=== PATIENT | female | born 1955 | race Caucasian/White ===

== ENCOUNTER 2017-01-04 10:49 | Observation (INO) | payer BC, OTHER ==
--- NOTE | 2017-01-04 11:13 | PDHPUP ---
History & Physical Update H&P update statement: This history and physical update is based on an assessment of the patient which was completed after admission or registration (within 24 hours), but prior to the surgery/procedure. H&P update: H&P reviewed & patient examined, no change in patient's condition since H&P completed
[2017-01-04] MEDS ORDERED: ceFAZolin 2 GM/DEXTROSE 100 ML IV ONE (12:30)
[2017-01-04] MEDS ORDERED: LR 1,000 ML IV ONE (12:38)
[2017-01-04] MEDS ORDERED: MIDAZOLAM 2 MG/2 ML VIAL IVP ONE (12:58)
[2017-01-04] MEDS ORDERED: LIDOCAINE 1% 2 ML INJ ONE (13:00)
--- NOTE | 2017-01-04 13:23 | PDANEPAE ---
ANE History of Present Illness thyroid toxicosis, currently euthyroid ANE Past Medical History - Cardiovascular History Hx Hypertension: No Hx Arrhythmias: No Hx Chest Pain: No Hx Coronary Artery / Peripheral Vascular Disease: No Hx CHF / Valvular Disease: No Hx Palpitations: No - Pulmonary History Hx COPD: No Hx Asthma/Reactive Airway Disease: No Hx Recent Upper Respiratory Infection: No Hx Oxygen in Use at Home: No - Neurologic History Hx Cerebrovascular Accident: No Hx Seizures: No Hx Dementia: No - Endocrine History Hx Diabetes: No Hypothyroid: Yes Hyperthyroid: Yes - Renal History Hx Renal Disorders: No - Liver History Hx Hepatic Disorders: No - Neurological & Psychiatric Hx Hx Neurological and Psychiatric Disorders: No - Cancer History Hx Cancer: No - Congenital Disorder History Hx Congenital Disorders: No - GI History Hx Gastrointestinal Disorders: Yes - Chronic Pain History Chronic Pain: No ANE Review of Systems - Exercise capacity Exercise capacity: >=4 METS METS (RN): 4 METS - Systems Constitutional: Reports: diaphoresis EENMT: Reports: no symptoms Cardiac: Reports: no symptoms Respiratory: Reports: no symptoms Gastrointestinal: Reports: no symptoms Neurological: Reports: no symptoms ANE Patient History - Allergies Allergies/Adverse Reactions: codeine Allergy (Verified 12/23/16 11:42) Swelling/neck,face,throat - Home Medications Home Medications: Methimazole [Tapazole 5MG (*)] 2.5 mg PO DAILY@12 12/23/16 [Last Taken 01/03/17] Methimazole [Tapazole 5MG (*)] 5 mg PO BID 12/23/16 [Last Taken 01/04/17 05:30] - NPO status NPO Since - Liquids (Date): 01/04/17 NPO Since - Liquids (Time): 08:00 NPO Since - Solids (Date): 01/03/17 NPO Since - Solids (Time): 19:00 - Smoking Hx Smoking Status: Never smoked - Alcohol Use Alcohol Use: Rarely - Family Anes Hx Family Anes Hx: none Family Hx Anesthesia Complications: NEG ANE Labs/Vital Signs - Vital Signs Blood Pressure: 117/57 Heart Rate: 55 Respiratory Rate: 16 O2 Sat (%): 94 Height: 160.02 cm Weight: 65.771 kg ANE Physical Exam - Airway Neck exam: FROM Mallampati Score: Class 2 Mouth exam: normal dental/mouth exam - Pulmonary Pulmonary: no respiratory distress - Cardiovascular Cardiovascular: regular rate and rhythym - ASA Status ASA Status: II ANE Anesthesia Plan Anesthesia Plan: general endotracheal anesthesia
[2017-01-04] MEDS ORDERED: ROCURONIUM 100 MG/10 ML VIAL ONE (13:43)
[2017-01-04] MEDS ORDERED: PROPOFOL 200 MG/20 ML VIAL ONE (13:43)
[2017-01-04] MEDS ORDERED: fentaNYL 100 MCG/2 ML INJ ONE ×2 (13:43→16:02)
[2017-01-04] MEDS ORDERED: DEXAMETHASONE 4 MG/ML VIAL ONE (13:57)
[2017-01-04] MEDS ORDERED: ONDANSETRON 4 MG/2 ML VIAL ONE (13:57)
[2017-01-04] MEDS ORDERED: REMIFENTANIL HCL 1 MG VIAL ONE (13:58)
[2017-01-04] MEDS ORDERED: BUPIVACAINE/EPI 0.5% 30 ML SDV ONE (14:02)
[2017-01-04] MEDS ORDERED: epHEDrine SULFATE 10 MG/ML SYR ONE (14:19)
[2017-01-04] MEDS ORDERED: NALOXONE HCL 0.4 MG/ML INJ IVP PRN (15:28)
[2017-01-04] MEDS ORDERED: ONDANSETRON 4 MG/2 ML VIAL IVP PRN ×2 (15:28→15:56)
[2017-01-04] MEDS ORDERED: PROMETHAZINE HCL 25 MG/ML INJ IVP PRN (15:28)
[2017-01-04] MEDS ORDERED: HYDROmorphONE/DILAUDID 1 MG/ML SYR IVP PRN (15:28)
[2017-01-04] MEDS ORDERED: OXYCODONE/APAP 5/325 TAB PO PRN ×2 (15:28→15:56)
[2017-01-04] MEDS ORDERED: HYDROCODONE/APAP 5/325 TAB PO PRN (15:28)
[2017-01-04] MEDS ORDERED: ALBUTEROL 3 ML DEYVIAL IH PRN (15:28)
--- NOTE | 2017-01-04 15:56 | POSTOPPROG ---
Post Op Note Date of Operation: 01/04/17 Surgeon: Everton Olivas Chicken Handler: Janiya Son Anesthesiologist: Song Anthony Anesthesia: GET(General Endotracheal) Pre-op Diagnosis: toxic goiter, hyperthyroid Post-op Diagnosis: same Procedure: total thyroidectomy Findings: large multinodular thyroid, parathyroids preserved, nerves identified Inf/Abcess present in the surg proc area at time of surgery?: No EBL: 200cc Complications: none Drains: [place]
[2017-01-04] MEDS ORDERED: NS W/ 20 KCl/L 1,000 ML IV SCH (16:00)
[2017-01-04] MEDS: fentaNYL 100 MCG/2 ML INJ IVP PRN ×2 (16:04→16:56)
[2017-01-04] MEDS ORDERED: DIAZEPAM 10 MG/2 ML SYR ONE (16:35)
[2017-01-04] MEDS ORDERED: DIAZEPAM 10 MG/2 ML SYR IVP ONE (16:45)
[2017-01-04] MEDS ORDERED: HYDROmorphONE/DILAUDID 1 MG/ML SYR ONE (17:00)
--- NOTE | 2017-01-04 17:39 | POSTANESTH ---
Post Anesthetic Evaluation Cardiovascular Status: Normal, Stable Respiratory Status: Normal, Stable Level of Consciousness/Mental Status: Can Participate in Eval Pain Control: Adequate, Prn Tx Ordered Nausea/Vomiting Control: Adequate, Prn Tx Ordered Complications Possibly Related to Anesthesia: None Noted
[2017-01-04] MEDS: HYDROmorphONE/DILAUDID 1 MG/ML SYR IVP PRN ×2 (18:13→19:50)
--- NOTE | 2017-01-04 19:42 | SOAPPROG ---
SOAP Progress Note Assessment/Plan: Assessment: POSTOP STATUS POST TOTAL THYROIDECTOMY/COMFORTABLE/VOICE OKAY/ CHOVSTEK'S SIGN IS NEGATIVE WOUND OKAY Plan: HOME IN THE A.M./CALCIUM CHECKED TONIGHT IN THE A.M. 01/04/17 19:40 Objective: Vital Signs Temp Pulse Resp BP Pulse Ox 36.5 C 62 16 139/74 H 99 01/04/17 19:16 01/04/17 19:16 01/04/17 19:16 01/04/17 19:16 01/04/17 19:16 01/03/17 01/04/17 01/05/17 05:59 05:59 05:59 Intake Total 1130 Output Total 0 Balance 1130 ICD10 Worksheet Patient Problems: Problems Problem Status Onset Graves' disease with exophthalmos Acute - ICD10 Problem Qualifiers (1) Graves' disease with exophthalmos
[2017-01-04] MEDS: DOCUSATE SODIUM 100 MG CAP PO SCH (23:24)
[2017-01-04] MEDS: HYDROCODONE/APAP 5/325 TAB PO PRN (23:30)
[2017-01-05 07:20] LABS: HEMATOCRIT 35.9 % (38.0-47.0); HEMOGLOBIN 11.9 g/dL (12.6-16.3)
[2017-01-05 07:33] LABS: ANION GAP 10 mEq/L (8-16); CALCIUM 7.7 mg/dL (8.5-10.4); CARBON DIOXIDE 23 mEq/l (22-31); CHLORIDE 104 mEq/L (97-110); CREATININE 0.6 mg/dL (0.6-1.0); GLOMERULAR FILTRATION RATE > 60; GLUCOSE 115 mg/dL (70-100); POTASSIUM 4.5 mEq/L (3.5-5.2); SODIUM 137 mEq/L (134-144)
[2017-01-05 08:26] VITALS: RESP 16; O2SAT 97
[2017-01-05] MEDS: DOCUSATE SODIUM 100 MG CAP PO SCH (08:34)
[2017-01-05] MEDS: HYDROCODONE/APAP 5/325 TAB PO PRN ×3 (08:35→18:07)
--- NOTE | 2017-01-05 10:24 | SOAPPROG ---
SOAP Progress Note Assessment/Plan: Assessment/Plan: 61 Y F s/p total thyroidectomy, hyperthyroid, POD#1. Hypocalcemia. Tums tid. Discussed S/S of hypocalcemia. WOund intact. Removed tayo drain. BP ok. Discussed limitations and wound care. Start armour thyroid. Pt has Rx from endocrinology. Dispo: home today. Repeat Ca++ soon. S: pain controlled. no numbness or tingling. O: alert, nad inc cdi, +ecchymosis, moderate swelling, no erythema, neg chovstek ctab rrr abd soft 01/05/17 10:21 Objective: Vital Signs Temp Pulse Resp BP Pulse Ox 36.6 C 54 L 16 123/66 H 97 01/05/17 08:00 01/05/17 08:00 01/05/17 08:00 01/05/17 08:00 01/05/17 08:00 Laboratory Results 01/05/17 06:22 01/05/17 06:22 01/04/17 01/05/17 01/06/17 05:59 05:59 05:59 Intake Total 1680 Output Total 1999 Balance -320 ICD10 Worksheet Patient Problems: Problems Problem Status Onset Graves' disease with exophthalmos Acute
[2017-01-05] MEDS ORDERED: CALCIUM GLUCONATE 50 ML IV ONE (10:39)
[2017-01-05] MEDS: CALCIUM CARBONATE 500 MG CHEWABLE TAB PO SCH ×2 (10:47→15:22)
[2017-01-05 11:30] VITALS: BP 115/54; PULSE 55; TEMP 97.7
[2017-01-05] MEDS ORDERED: CALCIUM CARBONATE 500 MG CHEWABLE TAB PO SCH (16:00)
== END 2017-01-05 19:00 | disposition home or self-care (01) ==
LOC: F3E 11:35
PROVIDERS: ADMIT Surgery; ATTEND Surgery
PROC: 0GTK0ZZ Resection of Thyroid Gland, Open Approach (ICD-10-PCS; principal; 2017-01-04 13:45)
DX: E01.0 Iodine-deficiency related diffuse (endemic) goiter (principal); E05.00 Thyrotoxicosis with diffuse goiter without thyrotoxic crisis or storm
CPT/HCPCS: 60240; G0378; J0610; J0690; J1100; J1170; J2250; J2405; J2704; J3010